=== PATIENT | male | born 1970 | race Caucasian/White ===

== ENCOUNTER 2017-04-27 10:19 | Emergency (ER) | payer OTHER ==
[2017-04-27 10:39] VITALS: BP 115/71; PULSE 71; RESP 20; TEMP 97.2; O2SAT 98
--- NOTE | 2017-04-27 10:58 | ED PDOC ---
Arrival/HPI - General Chief Complaint: Back Pain Time Seen by Provider: 04/27/17 10:47 Historian: Patient - History of Present Illness Narrative History of Present Illness (Text): 04/27/17 10:47 This 46 yo male presents to this ED c/o Left lateral thorax, and left upper back pain x 1 day. Patient stated he had been recently lifting bucket of ice at work. Pain radiates from left lateral thorax to left upper back. Pain is worsen during deep inspiration, and with movement. Patient denies fall, trauma , fever, sob, dizziness, rash, abdominal pain, n/v, or abnormal gait. PERC negative for PE Time/Duration: Other (1 day) Quality: Aching Context: Home Past Medical History - Provider Review Nursing Documentation Reviewed: Yes - Infectious Disease Hx of Infectious Diseases: None - Psychiatric Hx Substance Use: No (denies) - Anesthesia Hx Anesthesia: No Hx Anesthesia Reactions: No Hx Malignant Hyperthermia: No Family/Social History - Physician Review Nursing Documentation Reviewed: Yes Family/Social History: No Known Family HX Smoking Status: Light Smoker < 10 Cigarettes Daily Hx Alcohol Use: No (denies) Hx Substance Use: No (denies) Allergies/Home Meds Allergies/Adverse Reactions: Allergies No Known Allergies Allergy (Verified 04/27/17 10:39) Review of Systems - Review of Systems Constitutional: Normal. absent: Fatigue, Weight Change, Fevers Eyes: Normal ENT: Normal. absent: Sore Throat, Rhinorrhea Respiratory: absent: SOB, Cough, Sputum, Wheezing Cardiovascular: Chest Pain. absent: Palpitations, Edema, Calf Pain, YEPEZ, Orthopnea, Syncope Gastrointestinal: Normal Genitourinary Male: Normal. absent: Dysuria, Frequency, Hematuria Musculoskeletal: Normal Skin: Normal. absent: Rash, Pruritis Neurological: Normal. absent: Headache, Dizziness, Focal Weakness, Gait Changes , Speech Changes, Facial Droop, Disequilibrium Endocrine: Normal Hemo/Lymphatic: Normal Psychiatric: Normal Physical Exam Vital Signs Temp Pulse Resp BP Pulse Ox 04/27/17 10:25 97.2 F L 71 20 115/71 98 Temperature: Afebrile Blood Pressure: Normal Pulse: Regular Respiratory Rate: Normal Appearance: Positive for: Well-Appearing, Non-Toxic, Comfortable Pain Distress: None Mental Status: Positive for: Alert and Oriented X 3 - Systems Exam Head: Present: Atraumatic, Normocephalic Pupils: Present: PERRL Extroacular Muscles: Present: EOMI Conjunctiva: Present: Normal Mouth: Present: Moist Mucous Membranes Pharnyx: Present: Normal. No: ERYTHEMA, EXUDATE, TONSILS ENLARGED, Peritonsilar Swelling, Uvular Deviation, Muffled/Hoarse Voice Nose (External): Present: Atraumatic Nose (Internal): Present: Normal Inspection Neck: Present: Normal Range of Motion, Trachea Midline. No: Meningeal Signs, MIDLINE TENDERNESS Respiratory/Chest: Present: Clear to Auscultation, Good Air Exchange. No: Respiratory Distress, Accessory Muscle Use, Wheezes, Retracting, Rhonchi Cardiovascular: Present: Regular Rate and Rhythm, Normal S1, S2. No: Murmurs Abdomen: Present: Normal Bowel Sounds. No: Tenderness, Distention, Peritoneal Signs Back: Present: Normal Inspection. No: CVA Tenderness Upper Extremity: Present: Normal Inspection, Normal ROM, NORMAL PULSES, Neurovascularly Intact, Capillary Refill < 2s. No: Cyanosis, Edema Lower Extremity: Present: Normal Inspection, NORMAL PULSES, Normal ROM, Neurovascularly Intact, Capillary Refill < 2 s. No: Edema Neurological: Present: GCS=15, CN II-XII Intact, Speech Normal, Motor Func Grossly Intact, Normal Sensory Function, Normal Cerebellar Funct, Gait Normal Skin: Present: Warm, Dry, Normal Color. No: Rashes Psychiatric: Present: Alert, Oriented x 3 Medical Decision Making ED Course and Treatment: 04/27/17 12:10 Re-evaluation. Patient feels better. Discussed results and plan with patient who expresses understanding. Counseling was provided regarding the diagnosis and prognosis. All questions answered and there is agreement with the plan to discharge home with instructions. Patient stable for discharge. Return if symptoms persist or worsen Re-evaluation Time: 12:11 Reassessment Condition: Re-examined, Improved - RAD Interpretation Narrative RAD Interpretations (Text): 04/27/17 12:11 CXR: NAD Radiology Orders: 04/27/17 10:52 CHEST TWO VIEWS (PA/LAT) [RAD] Stat - EKG Interpretation Interpreted by ED Physician: Yes (Sinus Bradycardia @ 53 bpm. Normal interval) Type: 12 lead EKG Comparison: No previous EKG avail. - Medication Orders Current Medication Orders: Discontinued Medications Ketorolac Tromethamine (Toradol) 15 mg IM STAT STA Stop: 04/27/17 10:54 Last Admin: 04/27/17 10:57 Dose: 15 mg Disposition/Present on Arrival - Present on Arrival Any Indicators Present on Arrival: No History of DVT/PE: No History of Uncontrolled Diabetes: No Urinary Catheter: No History of Decub. Ulcer: No History Surgical Site Infection Following: None - Disposition Have Diagnosis and Disposition been Completed?: Yes Diagnosis: Chest wall pain, Upper back pain on left side Disposition: HOME/ ROUTINE Disposition Time: 12:11 Patient Plan: Discharge Condition: GOOD Discharge Instructions (ExitCare): Back Pain (ED) Additional Instructions: Call private doctor for follow up visit in 1-2 days. Take medication as instructed. return to emergency if symptoms worsen. Prescriptions: Famotidine [Pepcid] 40 mg PO DAILY #10 tablet Naproxen 500 mg PO BID #14 tab Forms: WORK NOTE
--- NOTE | 2017-04-27 15:44 | CARD ---
APPROVED REPORT EKG Measurement Heart [id number] <Conclusion> Sinus bradycardia Otherwise normal ECG
--- NOTE | 2017-04-27 16:55 | RAD ---
HISTORY: left upper back pain COMPARISON: No prior. TECHNIQUE: Chest PA and lateral FINDINGS: LUNGS: No active pulmonary disease. PLEURA: No significant pleural effusion identified. No pneumothorax apparent. CARDIOVASCULAR: Normal. OSSEOUS STRUCTURES: No significant abnormalities. VISUALIZED UPPER ABDOMEN: Normal. OTHER FINDINGS: None. IMPRESSION: No active disease.
== END 2017-04-27 12:22 | disposition home or self-care (01) ==
LOC: ED 10:19
DX: M54.9 Dorsalgia, unspecified (principal); R07.89 Other chest pain
CPT/HCPCS: 71020; 93005; 96372; 99283; J1885

== ENCOUNTER 2017-08-20 16:54 | Emergency (ER) | payer OTHER ==
[2017-08-20 17:08] VITALS: BMI 32.3
--- NOTE | 2017-08-20 17:40 | ED PDOC ---
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 Roberts is a 47 year old male with a past medical history of bronchial asthma and tobacco abuse who presented to emergency department with one week of cough productive of yellow to green phlegm since he returned home from [place] one week ago. He reports that his initial complaint of chest pain is associated with his cough. He reports no alleviating/aggravating factors and came in because it has been persistent throughout the week without getting better. He endorses smoking 3-4 cigarettes per day for 20-30 years. He denies fever, chills , night sweats, weight loss, headache, changes in his vision, dysphagia, palpitations, hemoptysis, wheezing, abdominal pain, N/V, hematemesis, diarrhea, burning with urination, rash, or any numbness/tingling/weakness of any extremities. PMD: Miguel (ARTEMIO HORTON) Past Medical History - Provider Review Nursing Documentation Reviewed: Yes - Travel History Have you recently traveled outside [place] w/in the past 3 mons?: Yes If Yes, travel location?: [place] - Infectious Disease Hx of Infectious Diseases: None - Cardiac Hx Cardiac Disorders: No - Pulmonary Hx Respiratory Disorders: No - Neurological Hx Neurological Disorder: No - HEENT Hx HEENT Disorder: No - Renal Hx Renal Disorder: No - Endocrine/Metabolic Hx Endocrine Disorders: No - Hematological/Oncological Hx Blood Disorders: No - Integumentary Hx Dermatological Disorder: No - Musculoskeletal/Rheumatological Hx Musculoskeletal Disorders: No - Gastrointestinal Other/Comment: GI BLEED - Genitourinary/Gynecological Hx Genitourinary Disorders: No - Psychiatric Hx Psychophysiologic Disorder: No Hx Substance Use: No (denies) - Anesthesia Hx Anesthesia: No <ARTEMIO HORTON - Last Filed: 08/20/17 18:01> <AyeMick - Last Filed: 08/20/17 21:00> <Gilmer Young - Last Filed: 08/31/17 11:17> - Patient History Narrative Patient History: States he was diagnosed with bronchial asthma 17 years ago but that he no longer has this condition (ARTEMIO HORTON) Family/Social History - Physician Review Nursing Documentation Reviewed: Yes Family/Social History: No Known Family HX Smoking Status: Light Smoker < 10 Cigarettes Daily Hx Alcohol Use: Yes (denies) Frequency of alcohol use: Daily (6 pack of beer per day) Hx Substance Use: No (denies) <ARTEMIO HORTON - Last Filed: 08/20/17 18:01> Allergies/Home Meds <ARTEMIO HORTON - Last Filed: 08/20/17 18:01> <AyeSaleemuzma - Last Filed: 08/20/17 21:00> <Gilmer Young - Last Filed: 08/31/17 11:17> Allergies/Adverse Reactions: Allergies No Known Allergies Allergy (Verified 08/20/17 17:08) Review of Systems - Physician Review All systems were reviewed & negative as marked: Yes - Review of Systems Constitutional: Normal. absent: Fatigue, Weight Change, Fevers, Night Sweats Eyes: Normal. absent: Vision Changes ENT: Normal, Sore Throat. absent: Rhinorrhea, Epistaxis, Sinus Congestion Respiratory: SOB, Cough, Sputum. absent: Wheezing Cardiovascular: Chest Pain (with coughing). absent: Palpitations, Edema, Calf Pain, Orthopnea, Syncope Gastrointestinal: Normal. absent: Abdominal Pain, Diarrhea, Nausea, Vomiting, Hematemesis Genitourinary Male: absent: Dysuria Skin: absent: Rash Neurological: absent: Headache, Dizziness <ARTEMIO HORTON - Last Filed: 08/20/17 18:01> Physical Exam Vital Signs Reviewed: Yes Temperature: Afebrile Blood Pressure: Normal Pulse: Regular Respiratory Rate: Normal Appearance: Positive for: Well-Appearing, Non-Toxic, Comfortable Pain Distress: None Mental Status: Positive for: Alert and Oriented X 3 - Systems Exam Head: Present: Atraumatic, Normocephalic Pupils: Present: PERRL Extroacular Muscles: Present: EOMI Conjunctiva: Present: Normal Mouth: Present: Moist Mucous Membranes Pharnyx: Present: Normal. No: ERYTHEMA, EXUDATE, TONSILS ENLARGED, Peritonsilar Swelling Nose (Internal): Present: Normal Inspection. No: No Active Bleeding, Edematous , Purulent Mucous Neck: Present: Normal Range of Motion, Trachea Midline. No: JVD, Lymphadenopathy Respiratory/Chest: Present: Clear to Auscultation, Good Air Exchange, Tender to Palpation. No: Respiratory Distress, Accessory Muscle Use, Wheezes, Decreased Breath Sounds, Rales, Rhonchi, Tachypneic Cardiovascular: Present: Regular Rate and Rhythm, Normal S1, S2. No: Murmurs, Irregular Rhythm, Tachycardic, Bradycardic Abdomen: Present: Normal Bowel Sounds. No: Tenderness, Distention, Peritoneal Signs Upper Extremity: Present: Normal Inspection, NORMAL PULSES, Capillary Refill < 2s. No: Cyanosis, Edema Lower Extremity: Present: Normal Inspection, NORMAL PULSES, Capillary Refill < 2 s. No: Edema, CALF TENDERNESS Neurological: Present: GCS=15, Speech Normal Skin: Present: Warm, Dry, Normal Color. No: Rashes Lymphatic: No: Cervical Adenopathy Psychiatric: Present: Alert, Oriented x 3, Normal Insight, Normal Concentration <ARTEMIO HORTON - Last Filed: 08/20/17 18:01> Vital Signs Temp Pulse Resp BP Pulse Ox 08/20/17 21:16 54 L 17 99 08/20/17 21:14 51 L 17 100 08/20/17 19:43 54 L 17 119/66 96 08/20/17 19:13 97.5 F L 58 L 18 130/72 98 08/20/17 17:07 97.4 F L 61 18 125/75 97 Medical Decision Making <ARTEMIO HORTON - Last Filed: 08/20/17 18:01> <Mick Griffiths - Last Filed: 08/20/17 21:00> <Gilmer Young - Last Filed: 08/31/17 11:17> ED Course and Treatment: 08/20/17 17:59 Impression: 47 year old male with a past medical history of bronchial asthma and tobacco abuse who presented to emergency department with one week of cough productive of yellow to green phlegm Differential Diagnosis included but are not limited to: Viral bronchitis, pneumonia, unstable angina Plan: -EKG -Chest X-Ray two view -Duoneb treatment -CBC, CMP, Troponin -- Reassess and disposition Prior Visits: Notes and results from previous visits were reviewed. On 04/27/17 patient came in complaining of back pain and chest wall pain. Patient was discharged home with prescription of percocet. Progress Notes: 08/20/17 18:02 (ARTEMIO HORTON) 08/20/17 21:03 EKG: sinus stephany @ 57; normal intervals; normal axis; no ST/T changes Patient with noted history with cough x 1 week and chest discomfort only associated with cough. EKG is unremarkable. CXR and labs are unremarkable. Patient feels better with nebs. Chest discomfort is associated only with cough with unremarkable findings; less likely to be cardiac and ok for d/c on treatment for bronchitis and f/u in the medical clinic. (Mick Griffiths) 08/31/17 11:16 This is not my patient. 's patient. (Gilmer Young) - Lab Interpretations Lab Results: 08/20/17 18:25 08/20/17 18:25 Lab Results 08/20/17 18:25: Sodium 141, Potassium 4.1, Chloride 106, Carbon Dioxide 27, Anion Gap 12, BUN 16, Creatinine 1.0, Est GFR ( Amer) > 60, Est GFR (Non- Af Amer) > 60, Random Glucose 102, Calcium 8.8, Total Bilirubin 0.4, AST 28, ALT 39, Alkaline Phosphatase 60, Lactate Dehydrogenase 463, Total Creatine Kinase 65, Troponin I < 0.01, Total Protein 7.1, Albumin 4.1, Globulin 3.0, Albumin/Globulin Ratio 1.4 08/20/17 18:25: WBC 6.2 D, RBC 4.87, Hgb 15.4, Hct 43.3, MCV 88.9, MCH 31.6, MCHC 35.6, RDW 12.9, Plt Count 275, MPV 9.0, Gran % 57.2, Lymph % (Auto) 30.7, Dolores % (Auto) 7.1 H, Eos % (Auto) 4.5, Baso % (Auto) 0.5, Gran # 3.52, Lymph # 1.9, Dolores # 0.4, Eos # 0.3, Baso # 0.03 - RAD Interpretation Radiology Orders: 08/20/17 17:50 CHEST TWO VIEWS (PA/LAT) [RAD] Stat - Medication Orders Current Medication Orders: Discontinued Medications Albuterol/Ipratropium (Duoneb 3 Mg/0.5 Mg (3 Ml) Ud) 3 ml IH STAT STA Stop: 08/20/17 17:51 Last Admin: 08/20/17 18:33 Dose: 3 ml Prednisone (Prednisone Tab) 40 mg PO STAT STA Stop: 08/20/17 21:03 Last Admin: 08/20/17 21:16 Dose: 40 mg - PA / DE ICER ELEMENT WINDER / Resident Statement / has reviewed & agrees with the documentation as recorded. / has examined the patient and agrees with the treatment plan. <Mick Griffiths - Last Filed: 08/20/17 21:00> Disposition/Present on Arrival - Present on Arrival History of DVT/PE: No History of Uncontrolled Diabetes: No Urinary Catheter: No History of Decub. Ulcer: No History Surgical Site Infection Following: None <ARTEMIO HORTON - Last Filed: 08/20/17 18:01> - Present on Arrival Any Indicators Present on Arrival: No - Disposition Have Diagnosis and Disposition been Completed?: Yes Disposition Time: 21:00 Patient Plan: Discharge <Mick Griffiths - Last Filed: 08/20/17 21:00> <Gilmer Young - Last Filed: 08/31/17 11:17> - Disposition Diagnosis: Bronchitis Disposition: HOME/ ROUTINE Condition: GOOD Discharge Instructions (ExitCare): How to Stop Smoking (ED), Acute Bronchitis ( ED) Print Language: MICRONESIAN Additional Instructions: Take the medications as prescribed. Follow up in the medical clinic. Stop smoking. Return to the emergency department if any new concerning symptoms. Prescriptions: Albuterol HFA [Ventolin HFA 90 mcg/actuation (8 g)] 2 puff IH Q4H #1 inhaler Azithromycin [Zithromax] 2 tab PO DAILY #6 tab Codeine Phosphate/Guaifenesin [Guaifenesin-Codeine Syrup] 10 ml PO Q6H PRN #180 ml PRN Reason: Cough predniSONE [Prednisone] 2 tab PO DAILY #6 tab Referrals: [facility] [place] - Follow up with primary Forms: [employer] (Norwegian)
[2017-08-20] MEDS ORDERED: Albuterol-Ipratrop 3 mg / 0.5 (3 ml) UD IH STA (17:50)
[2017-08-20 18:33] LABS: BASO # 0.03 K/mm3 (0.0-2.0); BASO % 0.5 % (0.0-3.0); EOS # 0.3 (0.0-0.7); EOS % 4.5 % (1.5-5.0); GRAN # 3.52 (1.4-6.5); GRAN % 57.2 % (50.0-68.0); HEMATOCRIT 43.3 % (42.0-52.0); LYMPH # 1.9 (1.2-3.4); LYMPH % 30.7 % (22.0-35.0); MEAN CELL VOLUME 88.9 fl (80.0-105.0); MEAN CORPUSCULAR HEMOGLOBIN 31.6 pg (25.0-35.0); MEAN CORPUSCULAR HGB CONC 35.6 g/dl (31.0-37.0); MONO # 0.4 (0.1-0.6); MONO % 7.1 % (1.0-6.0); RED CELL DISTRIBUTION WIDTH 12.9 % (11.5-14.5); WHITE BLOOD COUNT 6.2 10^3/ul (4.5-11.0)
[2017-08-20 18:44] LABS: ALB/GLOB RATIO 1.4 (1.1-1.8); ALKALINE PHOSPHATASE 60 U/L (38-126); ALT/SGPT 39 U/L (7-56); AST/SGOT 28 U/L (17-59); BILIRUBIN,TOTAL 0.4 mg/dL (0.2-1.3); BLOOD UREA NITROGEN 16 mg/dL (7-21); CALCIUM 8.8 mg/dL (8.4-10.5); CARBON DIOXIDE 27 mmol/L (21-33); CHLORIDE 106 mmol/L (98-107); GFR AFRICAN-AMERICAN > 60; GLUCOSE,RANDOM 102 mg/dL (70-110); POTASSIUM 4.1 mmol/L (3.6-5.0); SODIUM 141 mmol/L (132-148); TOTAL PROTEIN 7.1 g/dL (5.8-8.3)
[2017-08-20 18:59] LABS: TROPONIN I < 0.01 ng/mL
[2017-08-20 19:14] VITALS: TEMP 97.5
[2017-08-20 19:44] VITALS: BP 119/66; RESP 17
[2017-08-20 21:17] VITALS: PULSE 54; O2SAT 99
--- NOTE | 2017-08-21 08:34 | RAD ---
HISTORY: productive cough COMPARISON: Chest radiographs 04/27/2017. TECHNIQUE: Chest PA and lateral FINDINGS: LUNGS: No active pulmonary disease. PLEURA: No significant pleural effusion identified. No pneumothorax apparent. CARDIOVASCULAR: Normal. OSSEOUS STRUCTURES: No significant abnormalities. VISUALIZED UPPER ABDOMEN: Normal. OTHER FINDINGS: None. IMPRESSION: No acute cardiopulmonary disease or significant interval change identified.
--- NOTE | 2017-08-21 11:41 | CARD ---
APPROVED REPORT EKG Measurement Heart [id number] <Conclusion> Sinus bradycardia Otherwise normal ECG
== END 2017-08-20 21:17 | disposition home or self-care (01) ==
LOC: ED 16:54
DX: J20.9 Acute bronchitis, unspecified (principal); F17.210 Nicotine dependence, cigarettes, uncomplicated

== ENCOUNTER 2018-02-24 12:49 | Emergency (ER) | payer OTHER ==
[2018-02-24 13:05] VITALS: BMI 33.5
[2018-02-24 13:32] VITALS: RESP 18; TEMP 98; O2SAT 98
--- NOTE | 2018-02-24 13:55 | ED PDOC ---
Arrival/HPI - General Historian: Patient, Family - History of Present Illness Time/Duration: 24 hours Symptom Onset: Sudden Symptom Course: Improving Activities at Onset: Rest <Augustine Turcios - Last Filed: 02/24/18 13:51> <Alexander Bailey - Last Filed: 02/24/18 16:33> - General Chief Complaint: Trauma Time Seen by Provider: 02/24/18 12:53 - History of Present Illness Narrative History of Present Illness (Text): 02/24/18 13:52 patient is a 47M with no PMH comes to the ED after falling at work yesterday. 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 At that time he LOC for 20minutes. When he woke he denied any confusion. He denies any emesis. He then went home, took a shower, and went to bed. He woke up at approximately 7am, and fell back asleep until 11am. He had some pain located on the front right forehead. He came to the ED upon the insistence of his and daughter. Denies any vomiting, nausea, blurry vision, double vision , vision changes, confusion, lethargy. (Augustine Turcios) Past Medical History - Infectious Disease Hx of Infectious Diseases: None - Cardiac Hx Cardiac Disorders: No - Pulmonary Hx Respiratory Disorders: No - Neurological Hx Neurological Disorder: No - HEENT Hx HEENT Disorder: No - Renal Hx Renal Disorder: No - Endocrine/Metabolic Hx Endocrine Disorders: No - Hematological/Oncological Hx Blood Disorders: No - Integumentary Hx Dermatological Disorder: No - Musculoskeletal/Rheumatological Hx Musculoskeletal Disorders: No - Gastrointestinal Other/Comment: GI BLEED - Genitourinary/Gynecological Hx Genitourinary Disorders: No - Psychiatric Hx Psychophysiologic Disorder: No Hx Substance Use: No (denies) - Anesthesia Hx Anesthesia: No <Augustine Turcios - Last Filed: 02/24/18 13:51> - Provider Review Nursing Documentation Reviewed: Yes - Travel History Have you recently traveled outside [place] w/in the past 3 mons?: No - Past History Past History: No Previous <Alexander Bailey - Last Filed: 02/24/18 16:33> Family/Social History - Physician Review Nursing Documentation Reviewed: Yes Family/Social History: Unknown Family HX Smoking Status: Light Smoker < 10 Cigarettes Daily Hx Alcohol Use: Yes Frequency of alcohol use: Socially Hx Substance Use: No (denies) <Augustine Turcios Last Filed: 02/24/18 13:51> Hx Substance Use Treatment: No <Alexander Bailey - Last Filed: 02/24/18 16:33> Allergies/Home Meds <Augustine Turcios Last Filed: 02/24/18 13:51> <Alexander Bailey Last Filed: 02/24/18 16:33> Allergies/Adverse Reactions: Allergies No Known Allergies Allergy (Verified 08/20/17 17:08) Review of Systems - Review of Systems Constitutional: Normal Eyes: Normal ENT: Normal Respiratory: Normal Cardiovascular: Normal Gastrointestinal: Normal Genitourinary Male: Normal Musculoskeletal: Normal Skin: Normal Neurological: Normal Endocrine: Normal Hemo/Lymphatic: Normal Psychiatric: Normal <Augustine Turcios Filed: 02/24/18 13:51> Physical Exam Vital Signs Reviewed: Yes Temperature: Afebrile Blood Pressure: Normal Pulse: Regular Respiratory Rate: Normal Appearance: Positive for: Well-Appearing, Non-Toxic, Comfortable Pain Distress: None Mental Status: Positive for: Alert and Oriented X 3 - Systems Exam Head: Present: Atraumatic, Normocephalic Pupils: Present: PERRL Extroacular Muscles: Present: EOMI Conjunctiva: Present: Normal Mouth: Present: Moist Mucous Membranes Neck: Present: Normal Range of Motion Respiratory/Chest: Present: Clear to Auscultation, Good Air Exchange. No: Respiratory Distress, Accessory Muscle Use Cardiovascular: Present: Regular Rate and Rhythm, Normal S1, S2. No: Murmurs Abdomen: No: Tenderness, Distention, Peritoneal Signs Back: Present: Normal Inspection Upper Extremity: Present: Normal Inspection. No: Cyanosis, Edema Lower Extremity: Present: Normal Inspection. No: Edema Neurological: Present: GCS=15, CN II-XII Intact, Speech Normal Skin: Present: Warm, Dry, Normal Color. No: Rashes Psychiatric: Present: Alert, Oriented x 3, Normal Insight, Normal Concentration <Augustine Turcios Last Filed: 02/24/18 13:51> Vital Signs Temp Pulse Resp BP Pulse Ox 02/24/18 14:15 58 L 18 118/80 98 02/24/18 12:49 98.0 F 54 L 18 120/80 98 Medical Decision Making <Augustine Turcios - Last Filed: 02/24/18 13:51> Re-evaluation Time: 15:24 Reassessment Condition: Improved - RAD Interpretation Circuit Design Engineer: Radiologist <LeoAlexander - Last Filed: 02/24/18 16:33> ED Course and Treatment: 02/24/18 13:56 47M s/p fall and LOC - asx at the current time, no compliants - f/u head CT - reeval and dispo (Augustine Turcios) 02/24/18 14:11 Patient seen with the resident. I performed a physical exam of the patient and discussed their management with resident. I have reviewed the resident note and agree with the assessment and plan of care. Vital signs reviewed: Within normal limits alert/awake, GCS = 15, oriented x 3, resting in bed, uncomfortable, cooperative , interactive NC; noted mild right mid/lateral forehead swelling, no gross tenderness on exam , no induration/flucutance noted PERRLA, EOMI, sclera anicteric, no nystagmus, no photophobia NECK: intact ROM, no midline tenderness, no nuchal rigidity, no meningeal signs CTA b/l, no w/r/r +S1, +S2, no m/r/r +BS, soft/nd/nt, well nourished patient ext: intact ROM, strength 5/5 grossly intact in all limbs, neurovasc intact b/l SKIN: cap refill < 1 sec, no ulcerations, no petechiae, no rashes NEURO: CNII-XII WNL, no facial asymmetries, no slurr speech, oriented x 3 NIH stroke scale ~ 0 Impression: fall, head injury, Loss of Consciousness I have considered all the differential diagnosis regarding the patient's chief medical complaints/clinical findings, including but are not limited to: accidental fall, Loss of Consciousness A/P: fall, Loss of Consciousness -- Head CT -- Supportive Care -- Observe PROCEDURE: CT HEAD WITHOUT CONTRAST. Dictator : Gareth Murphy MD Report Date : 02/24/2018 14:05:24 IMPRESSION: No acute findings 02/24/18 15:27 pt is doing well pt is comfortable pt is not in any distress pt is made aware of his medical results pt is encouraged Cryotherapy pt will f/u as directed pt will be discharged home (Alexander Bailey) - RAD Interpretation Narrative RAD Interpretations (Text): 02/24/18 16:25 PROCEDURE: CT HEAD WITHOUT CONTRAST. HISTORY: fall LOC COMPARISON: None available. TECHNIQUE: Axial computed tomography images were obtained through the head/brain without intravenous contrast. Radiation dose: Total exam DLP = 934 mGy-cm. This CT exam was performed using one or more of the following dose reduction techniques: Automated exposure control, adjustment of the mA and/or kV according to patient size, and/or use of iterative reconstruction technique. FINDINGS: HEMORRHAGE: No intracranial hemorrhage. BRAIN: No mass effect or edema. No atrophy or chronic microvascular ischemic changes. VENTRICLES: Unremarkable. No hydrocephalus. CALVARIUM: Unremarkable. PARANASAL SINUSES: Unremarkable as visualized. No significant inflammatory changes. MASTOID AIR CELLS: Unremarkable as visualized. No inflammatory changes. OTHER FINDINGS: None. IMPRESSION: No acute findings (Alexander Bailey) Radiology Orders: 02/24/18 13:20 HEAD W/O CONTRAST [CT] Stat <Augustine Turcios - Last Filed: 02/24/18 13:51> - Scribe Statement The provider has reviewed the documentation as recorded by the Scribe <Alexander Bailey - Last Filed: 02/24/18 16:33> - Scribe Statement Carol Sanders Provider Scribe Attestation: All medical record entries made by the Scribe were at my direction and personally dictated by me. I have reviewed the chart and agree that the record accurately reflects my personal performance of the history, physical exam, medical decision making, and the department course for this patient. I have also personally directed, reviewed, and agree with the discharge instructions and disposition. (Alexander Bailey) Disposition/Present on Arrival - Present on Arrival History of DVT/PE: No History of Uncontrolled Diabetes: No Urinary Catheter: No History of Decub. Ulcer: No History Surgical Site Infection Following: None <Augustine Turcios - Last Filed: 02/24/18 13:51> - Present on Arrival Any Indicators Present on Arrival: No - Disposition Have Diagnosis and Disposition been Completed?: Yes Disposition Time: 15:30 Patient Plan: Discharge <Alexander Bailey - Last Filed: 02/24/18 16:33> - Disposition Diagnosis: Head injury, Concussion Disposition: HOME/ ROUTINE Condition: STABLE Discharge Instructions (ExitCare): Concussion in Adults, Closed Head Injury Print Language: ARABIC Additional Instructions: Make sure to see your doctor in 1-2 days DRINK PLENTY OF FLUIDS take your medications as prescribed ICE your forhead 15min/hr over the next 1-2 days RETURN TO ED IF worse pain, cant breath, persistent vomiting, high fever >101- 102 for hours, altered behavior, slurr speech, facial changes, focal weakness ( arm/leg or both), slurr speech, unable to urinate, heavy/persistent bleeding, passing out, chest pain, or other medical emergencies Prescriptions: Ibuprofen [Motrin] 400 mg PO QID PRN #30 tab PRN Reason: Pain, Mild (1-3) Referrals: Geri Bill [Primary Care Provider] - Follow up with primary Forms: [employer] (Lao), [email or web address] (Russian)
--- NOTE | 2018-02-24 14:07 | CT ---
PROCEDURE: CT HEAD WITHOUT CONTRAST. HISTORY: fall LOC COMPARISON: None available. TECHNIQUE: Axial computed tomography images were obtained through the head/brain without intravenous contrast. Radiation dose: Total exam DLP = 934 mGy-cm. This CT exam was performed using one or more of the following dose reduction techniques: Automated exposure control, adjustment of the mA and/or kV according to patient size, and/or use of iterative reconstruction technique. FINDINGS: HEMORRHAGE: No intracranial hemorrhage. BRAIN: No mass effect or edema. No atrophy or chronic microvascular ischemic changes. VENTRICLES: Unremarkable. No hydrocephalus. CALVARIUM: Unremarkable. PARANASAL SINUSES: Unremarkable as visualized. No significant inflammatory changes. MASTOID AIR CELLS: Unremarkable as visualized. No inflammatory changes. OTHER FINDINGS: None. IMPRESSION: No acute findings
[2018-02-24 14:16] VITALS: BP 118/80; PULSE 58
== END 2018-02-24 14:17 | disposition home or self-care (01) ==
LOC: ED 12:49
DX: S06.0X0A Concussion without loss of consciousness, initial encounter (principal); W01.0XXA Fall on same level from slipping, tripping and stumbling without subsequent striking against object, initial encounter; Y93.G1 Activity, food preparation and clean up; Y99.0 Civilian activity done for income or pay; F17.210 Nicotine dependence, cigarettes, uncomplicated